=== PATIENT | male | born 1995 | race Hispanic/Latino ===

== ENCOUNTER 2017-05-02 00:09 | Emergency (ER) | payer MEDICAID, OTHER ==
[2017-05-02] MEDS ORDERED: IBUPROFEN 400 MG TABLET ONE (01:03)
[2017-05-02] MEDS ORDERED: IPRATROPIUM/ALBUTEROL SULFATE 3 ML SOLUTION IH ONE (01:09)
== END 2017-05-02 02:07 | disposition home or self-care (01) ==
LOC: EDH 00:09
DX: J09.X2 Influenza due to identified novel influenza A virus with other respiratory manifestations (principal); J45.909 Unspecified asthma, uncomplicated
CPT/HCPCS: 87804; 94640